=== PATIENT | female | born 1975 | race Caucasian/White ===

== ENCOUNTER 2019-02-12 12:36 | Emergency (ER) | payer SELFPAY ==
[~2019-02-12] VITALS: Ht 170.2 cm; Wt 76.0 kg
[2019-02-12] MEDS ORDERED: KETOROLAC 60MG/2ML VIAL IM STA (15:02)
[2019-02-12 16:47] VITALS: BP 128/89
== END 2019-02-12 16:48 | disposition home or self-care (01) ==
LOC: ER 12:36
DX: S42.002A Fracture of unspecified part of left clavicle, initial encounter for closed fracture (principal); W18.39XA Other fall on same level, initial encounter; Y93.89 Activity, other specified; Y92.89 Other specified places as the place of occurrence of the external cause; Y99.8 Other external cause status; Z88.2 Allergy status to sulfonamides
CPT/HCPCS: 73030; 96372; 99283; J1885; L3670